=== PATIENT | male | born 1995 | race African-American/Black ===

== ENCOUNTER 2017-10-31 17:07 | Emergency (ER) | payer SELFPAY ==
[~2017-10-31] VITALS: Ht 172.7 cm; Wt 59.0 kg
[2017-10-31 17:09] VITALS: BP 128/70; PULSE 82; RESP 12; TEMP 98.1; O2SAT 99
--- NOTE | 2017-10-31 17:49 | PD ---
HPI Chief Complaint: Chest Pain Time Seen by Provider: 17:31 Travel History International Travel<30 days: No Contact w/Intl Traveler<30days: No Traveled to known affect area: No History of Present Illness HPI 22-year-old male presents to emergency department complaining of intermittent chest pain for the past few days. He denies chest pain at this time. His last episode was about 3-1/2 hours ago. The chest pain is midsternal and left-sided when it occurs. Rates the pain 8/10 and it lasts a few minutes. He does not have any associated shortness of breath with the chest pain. Describes it as a stabbing sensation. Denies recent illness to include cough, nasal congestion, sore throat, ear pain. Denies family history of cardiac events at this age. Denies tobacco use. Reports smoking marijuana. Denies other illicit drug use. Occasional alcohol use. Chest pain occurs spontaneously. 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 No known relieving factors. No known allergies. Denies significant past medical history. Has no other medical complaints. No other modifying factors or associated signs and symptoms. [facility] Social History Alcohol Use: Yes (occasional) Tobacco Use: No Substance Use: Yes (marijauna) Allergies-Medications (Allergen,Severity, Reaction): Coded Allergies: No Known Allergies (Verified Allergy, Unknown, 10/31/17) Review of Systems Except as stated in HPI: all other systems reviewed are Neg Physical Exam Narrative GENERAL: Well-nourished, well-developed black male patient, in no acute distress SKIN: Warm and dry. HEAD: Atraumatic. Normocephalic. EYES: Pupils equal and round. No scleral icterus. No injection or drainage. ENT: Mucosa pink and moist. NECK: Trachea midline. CHEST: No reproducible chest wall tenderness; no crepitance or deformity. No retractions or use of accessory muscles. CARDIOVASCULAR: Regular rate and rhythm. No murmur appreciated. RESPIRATORY: No accessory muscle use. Clear to auscultation. Breath sounds equal bilaterally. No retractions or tachypnea. GASTROINTESTINAL: Abdomen soft, non-tender, nondistended. Hepatic and splenic margins not palpable. Bowel sounds are active 4 quadrants. MUSCULOSKELETAL: No obvious deformities. No clubbing. No cyanosis. No edema. NEUROLOGICAL: Awake and alert. Oriented 3. No obvious cranial nerve deficits. Motor grossly within normal limits. Normal speech. Moves all extremities. 5/5 strength to all extremities. PSYCHIATRIC: Appropriate mood and affect; insight and judgment normal. Data Data Last Documented VS Vital Signs Date Time Temp Pulse Resp B/P (MAP) Pulse Ox O2 Delivery O2 Flow Rate FiO2 10/31/17 17:09 98.1 82 12 128/70 (89) 99 Orders Orders Electrocardiogram (10/31/17 17:43) Chest, Single Ap (10/31/17 17:43) MDM Medical Decision Making Medical Screen Exam Complete: Yes Emergency Medical Condition: Yes Medical Record Reviewed: Yes Differential Diagnosis Atypical chest pain, chest wall pain, muscle strain, less likely DC or ACS Narrative Course 22-year-old male with concern of intermittent chest pain for the past few days. Denies chest pain at this time. No associated shortness of breath. No reproducible tenderness on palpation of the chest wall. I discussed the patient with my attending physician, Dr. Salinas, and she agrees with my plan of care. Chest x-ray and EKG ordered. 1800: Chest x-ray with no acute findings. 1813: EKG with normal sinus rhythm; no ST elevation or depression; reviwed by Dr. Salinas. Findings discussed with the patient. Instructed patient to follow up with primary care provider. Patient verbalizes understanding and agreement with treatment plan. Patient is medically cleared and stable for discharge. Discussed reasons to return to the emergency department. Patient agrees with treatment plan. The patients vital signs are stable and the patient is stable for outpatient follow-up and treatment. Patient discharged home, stable and in no acute distress. Diagnosis Primary Impression: Chest pain Qualified Codes: R07.9 - Chest pain, unspecified Referrals: [facility] Primary Care Physician Patient Instructions: Chest Pain (ED), General Instructions Additional Instructions: Ibuprofen or Tylenol instructed to take for pain Avoid aggravating activity Follow-up with primary care provider Return to the emergency department immediately for worsening of symptoms Med/Other Pt SpecificInfo: No Change to Meds, No Meds Exist/No RX given Disposition: 01 DISCHARGE HOME Condition: Stable Aileen Cuevas Oct 31, 2017 17:49
--- NOTE | 2017-10-31 17:57 | RADRPT ---
EXAM DATE/TIME: 10/31/2017 17:47 [facility] COMPARISON: No previous studies available for comparison. INDICATIONS : Chest pain for 1 week. MEDICAL HISTORY : None. SURGICAL HISTORY : None. ENCOUNTER: Initial ACUITY: 1 week PAIN SCORE: 8/10 LOCATION: middle chest FINDINGS: A single view of the chest demonstrates the lungs to be symmetrically aerated without evidence of mas s, infiltrate or effusion. The cardiomediastinal contours are unremarkable. Osseous structures are intact. CONCLUSION: Normal one view chest x-ray. Srinivasa Murillo MD on October 31, 2017 at 17:55 Board Certified Radiologist. This report was verified electronically.
--- NOTE | 2017-10-31 18:18 | PD ---
Physical Exam Date Seen by Provider: Oct 31, 2017 Time Seen by Provider: 18:15 Narrative This patient presents complaining with intermittent chest pain. He is not having any pain currently. Data Data Last Documented VS Vital Signs Date Time Temp Pulse Resp B/P (MAP) Pulse Ox O2 Delivery O2 Flow Rate FiO2 10/31/17 17:09 98.1 82 12 128/70 (89) 99 Orders Orders Electrocardiogram (10/31/17 17:43) Chest, Single Ap (10/31/17 17:43) Ed Discharge Order (10/31/17 18:14) MDM Supervised Visit with RISHABH: Yes Narrative Course I, Dr. Salinas, have reviewed the advance practice practitioner's documentation and am in agreement, met with the patient face to face, made the diagnosis, and the medical decision making was done by me. *My assessment and Findings: This is a well-appearing 22-year-old man who is in no distress. His EKG shows a normal sinus rhythm with an early repolarization pattern. Chest x-ray was negative. Please see Aileen Cuevas NP's note for results of laboratory and radiographic evaluation, ED course, final diagnosis and disposition Diagnosis Primary Impression: Chest pain Qualified Codes: R07.9 - Chest pain, unspecified Referrals: [facility] Primary Care Physician Patient Instructions: General Instructions, Chest Pain (ED) Additional Instruction: Ibuprofen or Tylenol instructed to take for pain Avoid aggravating activity Follow-up with primary care provider Return to the emergency department immediately for worsening of symptoms Disposition: 01 DISCHARGE HOME Condition: Stable Jailyn Salinas MD Oct 31, 2017 18:18
--- NOTE | 2017-11-01 22:39 | EKG ---
Date Performed: 10/31/2017 Time Performed: 18:05:33 PTAGE: 22 years EKG: Sinus rhythm POSSIBLE RIGHT VENTRICULAR CONDUCTION DELAY BORDERLINE ECG NO PREVIOUS TRACING DOCTOR: Cedric Solis Interpretating Date/Time 11/01/2017 22:37:22
== END 2017-10-31 18:54 | disposition home or self-care (01) ==
LOC: NEPD 17:07
DX: R07.9 Chest pain, unspecified (principal); R94.31 Abnormal electrocardiogram [ECG] [EKG]
CPT/HCPCS: 71010; 93005; 99284

== ENCOUNTER 2018-02-01 22:22 | Emergency (ER) | payer SELFPAY ==
[~2018-02-01] VITALS: Ht 175.3 cm; Wt 60.0 kg
[2018-02-01 22:29] VITALS: BP 112/70; PULSE 82; RESP 16; TEMP 97.6; O2SAT 98
--- NOTE | 2018-02-01 23:01 | PD ---
HPI Chief Complaint: Skin Problem Time Seen by Provider: 22:55 Travel History International Travel<30 days: No Contact w/Intl Traveler<30days: No Traveled to known affect area: No History of Present Illness HPI Patient states that about 2 weeks ago he developed a solid bump on his penis it was nondraining, and did not have any open or red area, he also stated that he did not have any pain with urination nor any discharge from his urethra. Now he has noticed some bumps on his upper lip. This upper lip bumps apparently started about 2 or 3 days ago, today is noW down to 1 one lump that is drying and shriveling. Patient denies any alleviating or aggravating factors. Patient denies any associated factors such as fever, rash, headache, cough, sore throat, runny nose, chest pain, abdominal pain, back pain. No known drug allergy No past medical history, no past surgical history. PFSH Past Medical History Diminished Hearing: No Neurologic: Yes (HEAD INJURY 2017) Immunizations Current: Yes Tetanus Vaccination: Unknown Influenza Vaccination: No Past Surgical History Surgical History: No Previous Surgery Social History Alcohol Use: Yes (occasional) Tobacco Use: No Substance Use: Yes (marijauna) Allergies-Medications (Allergen,Severity, Reaction): Coded Allergies: No Known Allergies (Verified Allergy, Unknown, 02/01/18) Reported Meds & Prescriptions Reported Meds & Active Scripts Active No Active Prescriptions or Reported Medications Review of Systems General / Constitutional: No: Fever Eyes: No: Visual changes HENT: No: Headaches Cardiovascular: No: Chest Pain or Discomfort Respiratory: No: Shortness of Breath Gastrointestinal: No: Abdominal Pain Genitourinary: No: Dysuria Musculoskeletal: No: Pain Skin: Positive Lumps Neurologic: No: Weakness Psychiatric: No: Depression Endocrine: No: Polydipsia Hematologic/Lymphatic: No: Easy Bruising Physical Exam Narrative GENERAL: SKIN: Warm and dry. ONLY AREA NOTED APPEARED TO BE MORE RELATED TO ACNE THAN HSV /MOLLUSCUM OR OTHER LESIONS SUGGESTIVE OF STD HEAD: Atraumatic. Normocephalic. EYES: Pupils equal and round. No scleral icterus. No injection or drainage. ENT: No nasal bleeding or discharge. Mucous membranes pink and moist. NECK: Trachea midline. No JVD. CARDIOVASCULAR: Regular rate and rhythm. RESPIRATORY: No accessory muscle use. Clear to auscultation. Breath sounds equal bilaterally. GASTROINTESTINAL: Abdomen soft, non-tender, nondistended. NO LAD, NO URETHRAL DC, NO PENILE LESIONS MUSCULOSKELETAL: Extremities without clubbing, cyanosis, or edema. No obvious deformities. NEUROLOGICAL: Awake and alert. No obvious cranial nerve deficits. Motor grossly within normal limits. Five out of 5 muscle strength in the arms and legs. Normal speech. PSYCHIATRIC: Appropriate mood and affect; insight and judgment normal. Data Data Last Documented VS Vital Signs Date Time Temp Pulse Resp B/P (MAP) Pulse Ox O2 Delivery O2 Flow Rate FiO2 02/01/18 22:29 97.6 82 16 112/70 (84) 98 Orders Orders Urinalysis - C+S If Indicated (02/01/18 22:56) Gc And Chlamydia Pcr (02/01/18 22:56) Ed Discharge Order (02/01/18 23:14) Labs Laboratory Tests Test 02/01/18 23:15 Urine Collection Type CLEAN CATCH Urine Color YELLOW Urine Turbidity TURBID Urine pH 6.5 Urine Specific [place] 1.025 Urine Protein TRACE mg/dL Urine Glucose (UA) 100 mg/dL Urine Ketones TRACE mg/dL Urine Occult Blood NEG Urine Nitrite NEG Urine Bilirubin NEG Urine Urobilinogen 4.0 MG/DL Urine Leukocyte Esterase NEG Urine WBC 3-5 /hpf Urine Squamous Epithelial Cells 0-5 /hpf Urine Amorphous Sediment LARGE Urine Mucus MOD /lpf Microscopic Urinalysis Comment CULT NOT INDICATED Chlamydia trachomatis DNA (PCR) NOT DETECTED Neisseria gonorrhoeae DNA (PCR) NOT DETECTED MDM Medical Decision Making Medical Screen Exam Complete: Yes Emergency Medical Condition: Yes Medical Record Reviewed: Yes Differential Diagnosis GC versus chlamydia versus herpes versus chancroid versus syphilis Narrative Course clinically not c/w herpes/chancroid/syphillis/ currenlty awaiting gc and chlam testing as well....lesion more c/w acneiform papule. Diagnosis Primary Impression: Nonspecific papule Patient Instructions: General Instructions Additional Instructions: Patient advised that he will be called should the urinalysis healed any infection that requires treatment. Patient was advised to follow-up with the health department for further testing and care Scripts No Active Prescriptions or Reported Meds Disposition: 01 DISCHARGE HOME Condition: Stable Jg Buenrostro MD Feb 01, 2018 23:01
[2018-02-01 23:43] LABS: BILIRUBIN, URINE NEG (NEG); BLOOD, URINE NEG (NEG); GLUCOSE,URINE 100 mg/dL (NEG); KETONE, URINE TRACE mg/dL (NEG); NITRITE,URINE NEG (NEG); PH, URINE 6.5 (5.0-8.5); URINE COLOR YELLOW (YELLW/STRAW); URINE LEUKOCYTE ESTERASE NEG (NEG)
[2018-02-02] LABS: MUCUS URINE MOD /lpf (OCC)
[2018-02-02 00:01] LABS: AMORPHOUS SEDIMENT, URINE LARGE; SQUAMOUS EPITHELIAL CELL URINE 0-5 /hpf (0-5)
== END 2018-02-01 23:47 | disposition home or self-care (01) ==
LOC: PHED 22:22
DX: R23.8 Other skin changes (principal)
CPT/HCPCS: 81001; 87491; 87591; 99283